=== PATIENT | female | born 1955 | race Caucasian/White ===

== ENCOUNTER → 2016-10-02 | Outpatient (CLI) | payer MEDICARE | LOC: GMAL 10:50 | PROVIDERS: ATTEND Family Medicine | DX: D51.3 Other dietary vitamin B12 deficiency anemia (principal); D53.9 Nutritional anemia, unspecified; E55.9 Vitamin D deficiency, unspecified; Z79.899 Other long term (current) drug therapy ==

== ENCOUNTER → 2017-01-07 | Outpatient (CLI) | payer MEDICARE | END | disposition home or self-care (01) | LOC: GMAL 12:11 | PROVIDERS: ATTEND Family Medicine | DX: D50.9 Iron deficiency anemia, unspecified (principal) ==

== ENCOUNTER → 2017-03-20 | Outpatient (CLI) | payer MEDICARE | END | disposition home or self-care (01) | LOC: GMAL 10:25 | PROVIDERS: ATTEND Family Medicine | DX: D50.9 Iron deficiency anemia, unspecified (principal) ==

== ENCOUNTER → 2017-03-30 | Outpatient (CLI) | payer MEDICARE | END | disposition home or self-care (01) | LOC: MAMMO 13:41 | PROVIDERS: ATTEND Family Medicine | DX: Z12.31 Encounter for screening mammogram for malignant neoplasm of breast (principal) | CPT/HCPCS: 77063; G0202 ==

== ENCOUNTER → 2017-07-08 | Outpatient (CLI) | payer MEDICARE ==
--- NOTE | 2017-07-08 14:46 | MAM ---
EXAM DESCRIPTION: 3D Diagnostic, Bilateral: Digital Mammography CLINICAL HISTORY: 62 yearsFemaleABNORMAL MAMMO . No complaints. No family history of breast cancer. Hysterectomy. Has taken HRT more than 5 years ago.. COMPARISON: 3-D screening bilateral study 03/30/2017. Report from prior examination also reviewed. TECHNIQUE: Bilateral LM projection full-field images, 3-D tomosynthesis digital mammographic technique. Also bilateral synthesized LM full-field images. Bilateral 2-D digital spot magnification images of the retroareolar and middle third of the breast. CAD utilized for 2-D spot images. FINDINGS: The breast parenchymal density pattern is: Scattered areas of fibroglandular density. No skin thickening or nipple retraction densities fibroglandular tissues in the middle third retroareolar breasts bilaterally, extending along the posterior nipple line. Medial breast bilaterally and posterior thirds are almost entirely fatty. Multiple solitary microcalcifications and groups of microcalcifications associated with this dense or tissue. Heterogeneous small calcifications in the retroareolar right breast and at the 1200 clock position 4 cm from the nipple. Similar position of heterogeneous microcalcifications in the left breast. Ultrasound: Scanning bilateral breasts retroareolar and 1200 clock position from the nipple to 4 cm from the nipple. Bilateral heterogeneous tissue is mostly fibroglandular with minimal fatty tissue. No discrete solid mass or cyst. No skin changes or large calcifications. No parenchymal edema. No abnormal Doppler vascularity. IMPRESSION: BI-RADS CATEGORY: 3 - PROBABLY BENIGN. Management: Short interval (6-month) follow-up continued surveillance digital mammography bilaterally. The FINDINGS and the follow-up plan were reviewed in person with the patient after the examination. Written communication explaining the IMPRESSION and follow-up will be mailed to the patient and referring care provider. Electronically signed by: Arturo Ramirez MD 07/08/2017 2:45 PM [employer]
--- NOTE | 2017-07-08 14:52 | US ---
EXAM DESCRIPTION: Breast,Bilateral: Ultrasound CLINICAL HISTORY: 62 yearsFemaleABNORMAL MAMMO COMPARISON: Digital 3-D/2-D diagnostic mammography bilateral breast on this visit. 3-D tomosynthesis bilateral screening examination 03/30/2017. TECHNIQUE: Transcutaneous scanning of the bilateral breasts utilizing two-dimensional and Doppler modes. Scanning performed by the payroll and benefits manager and Dr. Ramirez. FINDINGS: Scanning bilateral breasts retroareolar and 1200 clock position from the nipple to 4 cm from the nipple. Bilateral heterogeneous tissue is mostly fibroglandular with minimal fatty tissue. Small focal areas of echogenicity with acoustic shadowing consistent with calcifications. No discrete solid mass or cyst. No skin changes or large calcifications. No parenchymal edema. No abnormal Doppler vascularity. IMPRESSION: 1. Bi-Rads Category 3: Probably Benign Findings. 2. Please refer to bilateral 3-D tomosynthesis diagnostic mammographic examination and report on this visit. The FINDINGS and the FOLLOW-UP plan were reviewed in person with the patient after the examination. Written communication explaining the IMPRESSION and FOLLOW-UP will be mailed to the patient and referring care provider. Electronically signed by: Arturo Ramirez MD 07/08/2017 2:52 PM [facility]
== END ==
LOC: MAMMO 10:45
PROVIDERS: ATTEND Family Medicine
DX: R92.8 Other abnormal and inconclusive findings on diagnostic imaging of breast (principal)
CPT/HCPCS: 76641; 77066; G0279

== ENCOUNTER → 2017-09-25 | Outpatient (CLI) | payer MEDICARE | LOC: GMAL 11:53 | PROVIDERS: ATTEND Family Medicine | DX: D51.3 Other dietary vitamin B12 deficiency anemia (principal); D50.9 Iron deficiency anemia, unspecified; E55.9 Vitamin D deficiency, unspecified ==

== ENCOUNTER → 2018-12-16 | Outpatient (CLI) | payer MEDICARE | LOC: GMAL 10:34 | PROVIDERS: ATTEND Family Medicine | DX: E53.8 Deficiency of other specified B group vitamins (principal); R53.83 Other fatigue; E55.9 Vitamin D deficiency, unspecified; I10 Essential (primary) hypertension; Z79.899 Other long term (current) drug therapy ==

== ENCOUNTER → 2019-10-20 | Outpatient (CLI) | payer MEDICARE | LOC: GMAL 11:51 | PROVIDERS: ATTEND Family Medicine | DX: R53.83 Other fatigue (principal); E55.9 Vitamin D deficiency, unspecified; I10 Essential (primary) hypertension ==

== ENCOUNTER → 2020-03-06 | Outpatient (CLI) | payer MEDICARE ==
--- NOTE | 2020-03-06 14:58 | CT ---
EXAM DESCRIPTION: Chest w/o Contrast CLINICAL HISTORY: OTHER NONSPECIFIC ABNORMAL FINDING OF LUNG FLUID COMPARISON: Rib series February 10, 2020 TECHNIQUE: Noncontrast transaxial CT images of the chest are obtained. This exam was performed according to our departmental dose-optimization program, which includes automated exposure control, adjustment of the mA and/or kV according to patient size and/or use of iterative reconstruction technique . FINDINGS: The heart and great vessels are unremarkable. No pathologically enlarged mediastinal, hilar, or axillary lymphadenopathy seen. No pleural or pericardial effusion. Nodular breast tissue is seen. The patient should be up to date on routine screening mammography. CT is not sensitive or specific for breast findings. Visualized portion of the upper abdomen shows surgical clips from cholecystectomy. Small hiatal hernia. Lungs are normally aerated. No acute appearing of tracer consolidation is seen. No bronchiectasis or bronchial wall thickening. No worrisome pulmonary nodules. Osseous structures are diffusely osteopenic. Scoliosis of the thoracic spine with curvature of the upper thoracic spine towards the left and mid to upper thoracic spine towards the right. Subtle buckling of the anterior left fifth and sixth ribs. No obvious cortical disruption or periosteal reaction. Right ribs are unremarkable. Spondylitic changes of the spine are seen. IMPRESSION: Mild buckling of the anterior left fifth and sixth ribs could represent age indeterminate nondisplaced rib fractures. Scoliosis of the thoracic spine is seen. Hiatal hernia. Otherwise no acute findings on CT of the chest. Electronically signed by: Kelton Benito MD 03/06/2020 2:56 PM CDT
== END ==
LOC: CT 10:21
PROVIDERS: ATTEND Family Medicine
DX: R91.8 Other nonspecific abnormal finding of lung field (principal); K44.9 Diaphragmatic hernia without obstruction or gangrene; M41.9 Scoliosis, unspecified; M95.4 Acquired deformity of chest and rib; M89.9 Disorder of bone, unspecified

== ENCOUNTER → 2020-03-09 | Outpatient (CLI) | payer MEDICARE ==
--- NOTE | 2020-03-09 14:52 | RAD ---
EXAM DESCRIPTION: Hip,Right 2 Views CLINICAL HISTORY: HIP PAIN RIGHT COMPARISON: February 08, 2020 TECHNIQUE: Four views right hip and femur FINDINGS: Four views to include the right hip and femur demonstrate a long intramedullary joseluis through the femoral shaft anchored distally at the diametaphyseal junction. There are likely threaded screw into the central femoral head through the upper extent is present with a separate lesser trochanteric fragment. Review of previous postoperative views showed several longitudinal fracture extending down the proximal femoral shaft. This is not as well appreciated on today's examination and there is a questionable lucency or partial fracture of the lateral cortex of the junction of the proximal and mid third of the femur. No malalignment or extension through the cortical margin noted. Alignment of the intertrochanteric fracture remains essentially anatomic. IMPRESSION: Stable alignment of internally fixed intertrochanteric fracture of the right hip long intramedullary joseluis and interlocking screw. Questionable subtle nondisplaced fracture of the proximal femoral shaft which is less apparent proximally compared to previous postoperative studies . Electronically signed by: Leroy Grider MD 03/09/2020 2:51 PM CDT
== END ==
LOC: RAD 09:17
PROVIDERS: ATTEND Orthopaedic Surgery
DX: S72.144D Nondisplaced intertrochanteric fracture of right femur, subsequent encounter for closed fracture with routine healing (principal); M89.9 Disorder of bone, unspecified; Z98.890 Other specified postprocedural states

== ENCOUNTER → 2020-04-12 | Outpatient (CLI) | payer MEDICARE ==
--- NOTE | 2020-04-13 09:25 | RAD ---
EXAM DESCRIPTION: Femur, right CLINICAL HISTORY: 65 years Female, INTERTOCHANTERIC FRACTURE RIGHT COMPARISON: March 09, 2020 FINDINGS: Four views right femur demonstrate fixation of the intertrochanteric fracture with threaded pin interlocking with a long intramedullary joseluis. Maturing callus formation in the region of the lesser trochanter noted. No significant change in alignment noted. The intramedullary joseluis is anchored distally with a transverse screw through the distal femoral shaft. Threaded pin is located centrally within the femoral head. IMPRESSION: Healing right intertrochanteric fracture internally fixed with interlocking threaded pin and intramedullary joseluis. Developing callus formation particularly at the separate lesser trochanteric fragment noted. Electronically signed by: Leroy Grider MD 04/13/2020 9:24 AM [facility]
== END ==
LOC: RAD 09:57
PROVIDERS: ATTEND Orthopaedic Surgery
DX: S72.141D Displaced intertrochanteric fracture of right femur, subsequent encounter for closed fracture with routine healing (principal); Z98.890 Other specified postprocedural states

== ENCOUNTER → 2020-05-11 | Outpatient (CLI) | payer MEDICARE ==
--- NOTE | 2020-05-13 09:43 | RAD ---
EXAM: Femur,Right INDICATION: 65 years Female, CLOSED INTERTROCHANTERIC FX OF RIGHT FEMUR COMPARISON: 2 views of the right femur 04/12/2020 FINDINGS: 2 views of the right femur were obtained on 4 images. Stable intramedullary joseluis with proximal gamma nail and distal transverse screw. Hardware is intact and appears unchanged from the prior study of 04/12/2020. Changes of healing with callus formation at an intertrochanteric fracture have slightly progressed since the prior examination of 04/12/2020. No new fracture is identified. No destructive osseous lesion. IMPRESSION: 1. Healing and callus formation and a right femur intertrochanteric fracture, slightly progressed from the prior study of 04/12/2020. 2. Stable fixation hardware in the right femur. Electronically signed by: Mitali Alston MD 05/13/2020 9:41 AM [facility]
== END ==
LOC: RAD 09:49
PROVIDERS: ATTEND Orthopaedic Surgery
DX: S72.141D Displaced intertrochanteric fracture of right femur, subsequent encounter for closed fracture with routine healing (principal); Z98.890 Other specified postprocedural states

== ENCOUNTER → 2020-06-11 | Outpatient (CLI) | payer MEDICARE ==
--- NOTE | 2020-06-11 12:08 | RAD ---
EXAM DESCRIPTION: Femur,Right CLINICAL HISTORY: FRACTURE COMPARISON: 08 February 2020 TECHNIQUE: 3 views right FINDINGS: A long stem gamma nail is seen in the right hip bridging an comminuted intratrochanteric right hip fracture. Callus formation is observed at the fracture site. No hardware failure is detected. No new or acute injury is seen. Screw fixation of the inferior aspect of the joseluis is observed. Hardware remains unchanged the previous exam. IMPRESSION: A long stem gamma nail is seen bridging a comminuted intratrochanteric fracture of the proximal right femur. Callus formation is observed at the fracture site. Electronically signed by: Rashid Nicole MD 06/11/2020 12:07 PM [facility]
== END ==
LOC: RAD 09:34
PROVIDERS: ATTEND Orthopaedic Surgery
DX: S72.141D Displaced intertrochanteric fracture of right femur, subsequent encounter for closed fracture with routine healing (principal); Z98.890 Other specified postprocedural states

== ENCOUNTER → 2020-07-12 | Outpatient (CLI) | payer MEDICARE ==
--- NOTE | 2020-07-12 15:59 | RAD ---
EXAM DESCRIPTION: Femur,Right CLINICAL HISTORY: 65 years Female, FX femur COMPARISON: Previous x-ray right hip June 11, 2020 FINDINGS: Orthopedic hardware is seen traversing intertrochanteric fracture of the proximal right femur. No change of alignment compared to previous study. A post lesser trochanter. Degenerative narrowing of the SI joints. Sacrum appears intact. Distal femur is included in the intramedullary joseluis is centrally situated with the distal screw in place. IMPRESSION: Unchanged alignment of orthopedic hardware stabilizing fractured proximal right femur. Electronically signed by: Josias Olsen MD 07/12/2020 3:58 PM [facility]
== END ==
LOC: RAD 10:05
PROVIDERS: ATTEND Orthopaedic Surgery
DX: S72.141D Displaced intertrochanteric fracture of right femur, subsequent encounter for closed fracture with routine healing (principal); Z98.890 Other specified postprocedural states